=== PATIENT | male | born 1955 | race Caucasian/White ===

== ENCOUNTER 2016-11-05 23:40 | Observation (INO) | payer BC ==
--- NOTE | 2016-11-05 23:56 | EDPHY ---
H & P Stated Complaint: bladder tumor removed on 11/02, abd pain HPI/ROS: Chief complaint: Abdominal pain HPI: Patient is 4 days status post trans urethral bladder tumor removal. Had his Contreras catheter removed yesterday. Had some pain after voiding yet yesterday but it improved today. Today at midnight is started developing some periumbilical pain right greater than left. It is a 4/10. It is dull and constant. Has no nausea vomiting or diarrhea. No fevers or chills. No chest pain or shortness of breath. He has been urinating without any difficulty. Is only having some very minimal discomfort with voiding. States that the car ride here was very uncomfortable. Does have a history of constipation. He has been taking ibuprofen and acetaminophen only for the pain. Was sent home with [place] but did not take any as he is concerned about the possibility of constipation. ROS: 10 point Review of Systems is negative except as noted in the HPI. 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 Spinal schwannoma removed 10 years ago Bilateral inguinal hernia repairs approximately 10 years ago Cholecystectomy in 2014 Medications: He takes a statin and ranitidine and a baby aspirin daily Allergies: No known drug allergies Social history: Does not smoke, does not drink alcohol, does not use any recreational drugs Physical exam: Gen: Awake, Alert, No Distress HEENT: Nose: no rhinorrhea Eyes: PERRLA, EOMI Mouth: Moist mucosa Neck: Supple, no JVD Chest: nontender, lungs clear to auscultation Heart: S1, S2 normal, no murmur Abd: Soft, he has tenderness and guarding with palpation of the right lower and left lower quadrant. Bowel sounds are normal active. No upper abdominal tenderness. Back: no CVA tenderness, no midline tenderness Ext: no edema, non-tender Skin: no rash Neuro: CN II-XII intact, Sensation grossly intact, Strength 5/5 in bilateral upper and lower extremities - Personal History Current Tetanus Diphtheria and Acellular Pertussis (TDAP): Yes - Medical/Surgical History Hx Asthma: No Hx Chronic Respiratory Disease: No Hx Diabetes: No Hx Cardiac Disease: No Hx Renal Disease: No Hx Cirrhosis: No Hx Alcoholism: No Hx HIV/AIDS: No Hx Splenectomy or Spleen Trauma: No Other PMH: GERD, spinal tumor resection, tumor on bladder removed 11/02/16 - Social History Smoking Status: Never smoked Constitutional: Initial Vital Signs Temperature (C) 36.8 C 11/05/16 23:42 Heart Rate 74 11/05/16 23:42 Respiratory Rate 16 11/05/16 23:42 Blood Pressure 170/96 H 11/05/16 23:42 O2 Sat (%) 94 11/05/16 23:42 O2 Delivery Mode Room Air Allergies/Adverse Reactions: No Known Allergies Allergy (Unverified 11/05/16 23:42) Home Medications: Medication Instructions Recorded Ascorbic Acid [Vitamin C 500 mg 1,000 mg PO DAILY 09/23/14 (*)] Aspirin EC [Aspirin EC 81 mg (*)] 81 mg PO DAILY 09/23/14 Calcium Citrate W/Vit D [Citracal 315 mg PO DAILY 09/23/14 + D] Herbals/Supplements -Info Only 1 ea PO DAILY 09/23/14 Multivitamins [Multivitamin (*)] 1 each PO DAILY 09/23/14 [place]-3 Fatty Acids [Fish Oil 1000 3,000 mg PO DAILY 09/23/14 mg (*)] Ranitidine HCl [Zantac] 150 mg PO TID 09/23/14 Simvastatin [Zocor 20 mg] 20 mg PO HS 09/23/14 Hydrocodone/APAP 5/325 [[place] 1 - 2 tab PO Q4 PRN #60 tab 09/24/14 5/325 (*)] Medical Decision Making - Diagnostics Imaging: CT scan of the abdomen and pelvis, interpreted by Dr. Be. There is free air anterior to the bladder with free fluid consistent with urine. There is also a bladder defect in the anterior bladder. This is consistent with bladder perforation. ED Course/Re-evaluation: 61-year-old male status post bladder tumor removal. CT scan reveals the urinary bladder perforation with free air anterior to the bladder and free fluid consistent with urine. I will discuss with Dr. Tam, the patient's urologist. - Data Points Laboratory Results: Laboratory Results 11/06/16 00:30 11/06/16 00:30 11/06/16 11/06/16 11/05/16 00:30 00:30 23:58 WBC 12.53 10^3/uL H 10^3/uL (3.80-9.50) RBC 4.85 10^6/uL 10^6/uL (4.40-6.38) Hgb 14.7 g/dL g/dL (13.7-17.5) Hct 42.1 % % (40.0-51.0) MCV 86.8 fL fL (81.5-99.8) MCH 30.3 pg pg (27.9-34.1) MCHC 34.9 g/dL g/dL (32.4-36.7) RDW 12.7 % % (11.5-15.2) Plt Count 249 10^3/uL 10^3/uL (150-400) MPV 10.5 fL fL (8.7-11.7) Neut % (Auto) 76.8 % H % (39.3-74.2) Lymph % (Auto) 12.7 % L % (15.0-45.0) [place] % (Auto) 8.3 % % (4.5-13.0) Eos % (Auto) 1.4 % % (0.6-7.6) Baso % (Auto) 0.5 % % (0.3-1.7) Nucleat RBC Rel Count 0.0 % % (0.0-0.2) Absolute Neuts (auto) 9.62 10^3/uL H 10^3/uL (1.70-6.50) Absolute Lymphs (auto) 1.59 10^3/uL 10^3/uL (1.00-3.00) Absolute Monos (auto) 1.04 10^3/uL H 10^3/uL (0.30-0.80) Absolute Eos (auto) 0.18 10^3/uL 10^3/uL (0.03-0.40) Absolute Basos (auto) 0.06 10^3/uL 10^3/uL (0.02-0.10) Absolute Nucleated RBC 0.00 10^3/uL 10^3/uL (0-0.01) Immature Gran % 0.3 % % (0.0-1.1) Immature Gran # 0.04 10^3/uL 10^3/uL (0.00-0.10) Sodium 137 mEq/L mEq/L (134-144) Potassium 4.2 mEq/L mEq/L (3.5-5.2) Chloride 103 mEq/L mEq/L (97-110) Carbon Dioxide 23 mEq/l mEq/l (22-31) Anion Gap 11 mEq/L mEq/L (8-16) BUN 14 mg/dL mg/dL (7-23) Creatinine 1.8 mg/dL H mg/dL (0.7-1.3) Estimated GFR 39 Glucose 111 mg/dL H mg/dL (70-100) Calcium 9.1 mg/dL mg/dL (8.5-10.4) Urine Color PALE YELLOW Urine Appearance CLEAR Urine pH 6.0 (5.0-7.5) Ur Specific [place] 1.003 (1.002-1.030) Urine Protein NEGATIVE (NEGATIVE) Urine Ketones NEGATIVE (NEGATIVE) Urine Blood 2+ H (NEGATIVE) Urine Nitrate NEGATIVE (NEGATIVE) Urine Bilirubin NEGATIVE (NEGATIVE) Urine Urobilinogen NEGATIVE EU EU (0.2-1.0) Ur Leukocyte Esterase NEGATIVE (NEGATIVE) Urine RBC 15-25 /hpf H /hpf (0-3) Urine WBC 1-3 /hpf /hpf (0-3) Ur Epithelial Cells NONE SEEN /lpf /lpf (NONE-1+) Urine Glucose NEGATIVE (NEGATIVE) Medications Given: Discontinued Medications Fentanyl (Sublimaze) 50 mcg IVP EDNOW ONE Stop: 11/06/16 00:08 Last Admin: 11/06/16 00:37 Dose: 50 mcg Sodium Chloride (Ns) 1,000 mls @ 0 mls/hr IV ONCE ONE PRN Reason: Wide Open Stop: 11/06/16 00:08 Last Admin: 11/06/16 00:36 Dose: 1,000 mls Sodium Chloride (Ns) 1,000 mls @ 0 mls/hr IV ONCE ONE PRN Reason: Wide Open Stop: 11/06/16 01:41 Last Admin: 11/06/16 01:42 Dose: 1,000 mls Ondansetron HCl (Zofran) 4 mg IVP EDNOW ONE Stop: 11/06/16 00:07 Last Admin: 11/06/16 00:37 Dose: 4 mg Departure - Departure Referrals: Dino Arcos MD [Primary Care Provider] - As per Instructions
[2016-11-06] MEDS ORDERED: ONDANSETRON 4 MG/2 ML VIAL IVP ONE (00:06)
[2016-11-06] MEDS ORDERED: NS 1,000 ML IV ONE ×2 (00:07→01:40)
[2016-11-06] MEDS ORDERED: fentaNYL 100 MCG/2 ML INJ IVP ONE (00:07)
[2016-11-06 00:32] LABS: COLOR PALE YELLOW; LEUKOCYTE ESTERASE,URINE NEGATIVE (NEGATIVE); NITRITE,URINE NEGATIVE (NEGATIVE)
[2016-11-06 00:35] LABS: RBC,URINE 15-25 /hpf (0-3)
[2016-11-06 00:47] LABS: % IMMATURE GRANULYOCYTES 0.3 % (0.0-1.1); ABSOLUTE IMMATURE GRANULOCYTES 0.04 10^3/uL (0.00-0.10); ADD DIFF? NO; ADD MORPH? NO; ADD SCAN? NO; ATYPICAL LYMPHOCYTE FLAG 0 (0-99); FRAGMENT RBC FLAG 0 (0-99); HEMATOCRIT 42.1 % (40.0-51.0); HEMOGLOBIN 14.7 g/dL (13.7-17.5); LEFT SHIFT FLG 0 (0-99); LIPEMIA HEMOLYSIS FLAG 90 (0-99); MEAN CELL HEMOGLOBIN 30.3 pg (27.9-34.1); MEAN CELL HEMOGLOBIN CONCENTR. 34.9 g/dL (32.4-36.7); MEAN CELL VOLUME 86.8 fL (81.5-99.8); MEAN PLATELET VOLUME 10.5 fL (8.7-11.7); PLATELET CLUMPS FLAG 50 (0-99); PLATELET COUNT 249 10^3/uL (150-400); RED BLOOD CELL COUNT 4.85 10^6/uL (4.40-6.38); RED CELL DISTRIBUTION WIDTH 12.7 % (11.5-15.2)
[2016-11-06 01:09] LABS: ANION GAP 11 mEq/L (8-16); CALCIUM 9.1 mg/dL (8.5-10.4); CARBON DIOXIDE 23 mEq/l (22-31); CHLORIDE 103 mEq/L (97-110); CREATININE 1.8 mg/dL (0.7-1.3); GLOMERULAR FILTRATION RATE 39; GLUCOSE 111 mg/dL (70-100); POTASSIUM 4.2 mEq/L (3.5-5.2); SODIUM 137 mEq/L (134-144)
[2016-11-06] MEDS ORDERED: IOPAMIDOL (ISOVUE-300) 100 ML BTL IV ONE (01:15)
[2016-11-06] MEDS ORDERED: HYDROmorphONE/DILAUDID 1 MG/ML SYR ONE (01:58)
[2016-11-06] MEDS ORDERED: HYDROmorphONE/DILAUDID 1 MG/ML SYR IVP ONE (02:01)
--- NOTE | 2016-11-06 02:39 | PDCONSULT ---
Brand Sales Manager Note: Case discussed with Dr Gabriel. CT images and labs reviewed. Plan for observation. Contreras catheter. CT cystogram in AM. May need exploration if doesn't clinically improve but will try conservative management first.
[2016-11-06] MEDS: HYDROmorphONE/DILAUDID 1 MG/ML SYR IVP PRN ×7 (04:14→22:05)
[2016-11-06] MEDS ORDERED: IOPAMIDOL (ISOVUE-300) 50 ML VIAL IV ONE (07:37)
[2016-11-06] MEDS ORDERED: OPIUM/BELLADONNA ALKALO SUPP PR PRN ×2 (14:25→14:26)
[2016-11-06] MEDS: FAMOTIDINE 20 MG TAB PO SCH ×2 (15:56→22:04)
--- NOTE | 2016-11-06 16:23 | SOAPPROG ---
SOAP Progress Note Assessment/Plan: Assessment: Extraperitoneal rupture of bladder Acute Reviewed CAT scan and exam. Continue care, answered questions Plan: Continue kilgore, plan DC in AM, consider cystogram one week from Wednesday prior to removal of kilgore 11/06/16 16:25 Subjective: feeling better, removed kilgore Wednesday and had pain / spasms post removal. Objective: Vital Signs Temp Pulse Resp BP Pulse Ox 36.9 C 57 L 16 116/73 94 11/06/16 15:47 11/06/16 15:47 11/06/16 15:47 11/06/16 15:47 11/06/16 15:47 11/05/16 11/06/16 11/07/16 05:59 05:59 05:59 Intake Total 2000 Output Total 1300 2100 Balance 700 -2100 Physical Exam - Physical Exam General Appearance: alert Neck: supple, normal inspection Respiratory: No respiratory distress Cardiac/Chest: regular rate, rhythm Abdomen: soft, No guarding (no abdominal wall erythema), No rebound Back: No CVA tenderness Extremities: non-tender, No calf tenderness, No Shereen's sign Neuro/Psych: alert, oriented x 3 ICD10 Worksheet Patient Problems: Problems Problem Status Onset Extraperitoneal rupture of bladder Acute Acute cholecystitis Acute
--- NOTE | 2016-11-06 17:16 | GHP ---
[f rep st] PREOP HISTORY AND PHYSICAL DATE OF ADMISSION: 11/06/2016 ADMISSION DIAGNOSIS: Bladder rupture. HISTORY OF PRESENT ILLNESS: By history this gentleman is 4 days status post transurethral resection of a bladder lesion and he removed the catheter on Wednesday and is admitted to the hospital [facility] of abdominal pain. He had some paraumbilical pain, greater on the right than the left and it was dull and constant. He had no nausea, vomiting, diarrhea, fever or chills. No shortness of breath. He has been urinating with some difficulty. He is only having some very minimal discomfort with vo iding. REVIEW OF SYSTEMS: Negative cardiac, respiratory, GI, endocrine and neuro. PAST SURGERY HISTORY: He has had TUR of a bladder lesion and he has had GERD and hyperlipidemia. Kirsten cha has had a T12-L1 spinal schwannoma removed 10 years ago. Bilateral inguinal hernia repair 10 year s ago. Cholecystectomy in 2014. MEDICATIONS: Have been a statin, ranitidine. ALLERGIES: No known drug allergies. SOCIAL HISTORY: Nonsmoker and nondrinker. PHYSICAL EXAM: GENERAL: He is alert and oriented x3. HEART: Regular rate and rhythm. ABDOMEN: No rebound or guarding. EXTREMITIES: Lower extremities are normal. GENITALIA: Penis is normal wi th the catheter draining well. BACK: He has no CVA tenderness. ABDOMEN: No abdominal wall erythe ma. I have reviewed his CAT scan and it shows he has had perforation of the dome of the bladder ervin t to me appears to be extraperitoneal and at the present time I have discussed with him the above is sues and the plan. My suggestion would be to leave the catheter in until a week from Wednesday where kirsten cha would then have a cystogram and if the cystogram shows no leakage of urine then to remove the cath eter. I have also discussed another option would be to operate on him and close the perforation but at the present time with him feeling better, things going well, I have elected to take a more conse rvative route. Dr. Levine was the consulting physician being on-call at night and I have seen the patient for the admission and followup. /[id number]/MODL
[2016-11-07] MEDS: HYDROmorphONE/DILAUDID 1 MG/ML SYR IVP PRN (00:27)
[2016-11-07 05:16] VITALS: TEMP 98.1; O2SAT 96
[2016-11-07 05:36] LABS: ANION GAP 7 mEq/L (8-16); CALCIUM 8.6 mg/dL (8.5-10.4); CARBON DIOXIDE 28 mEq/l (22-31); CHLORIDE 104 mEq/L (97-110); GLOMERULAR FILTRATION RATE > 60; GLUCOSE 115 mg/dL (70-100); POTASSIUM 4.2 mEq/L (3.5-5.2); SODIUM 139 mEq/L (134-144)
[2016-11-07 07:58] VITALS: BP 140/83; PULSE 55; RESP 16
[2016-11-07] MEDS ORDERED: CETIRIZINE 10 MG TAB PO PRN (09:00)
[2016-11-07] MEDS ORDERED: ATORVASTATIN CALCIUM 20 MG TAB PO SCH (09:00)
--- NOTE | 2016-11-07 10:34 | SOAPPROG ---
SOAP Progress Note Assessment/Plan: Assessment: Extraperitoneal rupture of bladder Acute Reviewed CAT scan and exam. Continue care, answered questions Plan: Continue kilgore, plan DC , consider cystogram one week from Wednesday prior to removal of kilgore 11/07/16 10:33 Subjective: doing well desires DC, options discussed on rx / care of the admitting problem Objective: Vital Signs Temp Pulse Resp BP Pulse Ox 36.7 C 55 L 16 140/83 H 96 11/07/16 07:57 11/07/16 07:57 11/07/16 07:57 11/07/16 07:57 11/07/16 07:57 Laboratory Results 11/07/16 04:36 11/06/16 11/07/16 11/08/16 05:59 05:59 05:59 Intake Total 2000 800 Output Total 1300 4750 Balance 700 -3950 Physical Exam - Physical Exam General Appearance: alert Neck: normal inspection Respiratory: No respiratory distress Cardiac/Chest: regular rate, rhythm Abdomen: soft, No distended, No guarding, No rebound Male Genitalia: normal genitalia Back: No CVA tenderness Skin: warm/dry Extremities: No calf tenderness, No Shereen's sign Neuro/Psych: alert, oriented x 3 ICD10 Worksheet Patient Problems: Problems Problem Status Onset Extraperitoneal rupture of bladder Acute Acute cholecystitis Acute
[2016-11-07] MEDS: FAMOTIDINE 20 MG TAB PO SCH (10:39)
--- NOTE | 2016-11-07 11:08 | GDS ---
[f rep st] DISCHARGE SUMMARY ADMISSION DIAGNOSIS: Perforation of the bladder. DISCHARGE DIAGNOSIS: Perforation of the bladder. PROCEDURES DURING HOSPITALIZATION: Contreras catheter placement and CT cystogram/CT of the abdomen and pelvis. HOSPITAL COURSE: This gentleman was admitted urgently and was noted to have a perforation of the do me of the bladder and all symptoms abated when a catheter was passed. Impression is most likely an e xtraperitoneal extravasation or hole and elected not to have intervention with surgery. Will have c atheter drainage. Then in 1 week have him undergo a cystogram for consideration catheter. He is aw are of the options of catheter drainage or see if it will resolve spontaneously or if it will requir e surgical closure of the perforation. He is quite comfortable with the plan of catheter, spontaneo us healing. He will call the office for scheduling the appointment cystogram and followup with Dr. Tam. No complications encountered, associated with the direct admission, and his creatinine on d ischarge is normal and good urine output. No major complaints. /[id number]/MODL
== END 2016-11-07 11:10 | disposition home or self-care (01) ==
LOC: F3N 11-06 03:30
PROVIDERS: ADMIT Urology; ATTEND Specialist
PROC: 0T9B70Z Drainage of Bladder with Drainage Device, Via Natural or Artificial Opening (ICD-10-PCS; principal; 2016-11-06)
DX: N99.89 Other postprocedural complications and disorders of genitourinary system (principal); N32.89 Other specified disorders of bladder; K21.9 Gastro-esophageal reflux disease without esophagitis; E78.5 Hyperlipidemia, unspecified
CPT/HCPCS: 51702; 72193; 74177; G0378; J0696; J1170; J2405; J3010; Q9967

== ENCOUNTER → 2016-11-16 | Outpatient (CLI) | payer BC | LOC: FIMAGING 07:43 | PROVIDERS: ATTEND Specialist | DX: Z09 Encounter for follow-up examination after completed treatment for conditions other than malignant neoplasm (principal) ==

== ENCOUNTER 2018-01-04 16:58 | Observation (INO) | payer BC ==
[2018-01-04] MEDS ORDERED: ACETAMINOPHEN 500 MG TAB PO ONE (17:07)
[2018-01-04] MEDS ORDERED: NS 1,000 ML IV ONE ×2 (17:51)
[2018-01-04 18:50] LABS: PLATELET COUNT 198 10^3/uL (150-400)
--- NOTE | 2018-01-04 18:50 | EDPHY ---
H & P Time Seen by Provider: 01/04/18 17:49 HPI/ROS: Chief complaint. Cough, fever HPI. 62-year-old male presents emergency department with upper respiratory symptoms for the past 8-9 days. It has progressively worsened. He has had dyspnea on exertion especially the last 2 days. He has been using over-the- counter meds. Yesterday and today the patient has had fever, chills, shivering as well as productive cough. No recent travel or known exposures. No abdominal pain or nausea vomiting or diarrhea. No chest discomfort. ROS Constitutional. Fever and chills as well as generalized weakness Eyes. no problems with vision ENT. Upper respiratory infection and slight sore throat Cardiovascular. no chest pain Respiratory. Cough and shortness of breath especially with exertion Abdominal. no abdominal pain, no nausea/vomiting, no diarrhea . no problems urinating MS. no calf pain/swelling, no neck/back pain, no joint pain Skin. no rash Lymph. no swollen glands Neuro. no headache, no dizziness, no difficulty walking or with speech Past Medical/Surgical History: GERD, spinal tumor resection, cholecystectomy, hernia repair Social History: , nonsmoker, no alcohol Smoking Status: Never smoked Physical Exam: General Appearance: Alert well-developed male moderate distress vital signs show temp 39.3 degrees, heart rate 125, O2 saturation 91% on room air Eyes: Pupils equal and round no pallor or injection. ENT, Mouth: Mucous membranes are moist. Respiratory: Rales mid lung acuña bilaterally and decreased breath sounds on the left lung base Cardiovascular: Regular rate and rhythm with tachycardia Gastrointestinal: Abdomen is soft and nontender, no masses, bowel sounds normal. Neurological: Awake and alert, sensory and motor exams grossly normal. Skin: Warm and dry, no rashes. Musculoskeletal: Neck is supple nontender. Extremities symmetrical, full range of motion. Psychiatric: Patient is oriented X 3, there is no agitation. Constitutional: Initial Vital Signs Temperature (C) 39.3 C H 01/04/18 17:04 Heart Rate 125 H 01/04/18 17:04 Respiratory Rate 18 01/04/18 17:04 Blood Pressure 163/91 H 18 17:04 O2 Sat (%) 91 L 01/04/18 17:04 O2 Delivery Mode Room Air Allergies/Adverse Reactions: No Known Allergies Allergy (Unverified 01/04/18 17:04) Home Medications: Medication Instructions Recorded Ascorbic Acid [Vitamin C 500 mg 1,000 mg PO DAILY 09/23/14 (*)] Aspirin EC [Aspirin EC 81 mg (*)] 81 mg PO DAILY 09/23/14 Calcium Citrate W/Vit D [Citracal 315 mg PO DAILY 09/23/14 + D] Herbals/Supplements -Info Only 1 ea PO DAILY 09/23/14 Multivitamins [Multivitamin (*)] 1 each PO DAILY 09/23/14 [place]-3 Fatty Acids [Fish Oil 1000 3,000 mg PO DAILY 09/23/14 mg (*)] Ranitidine HCl [Zantac] 150 mg PO TID 09/23/14 Fexofenadine HCl [Norma Allergy] 60 mg PO DAILY PRN 11/06/16 Simvastatin [Zocor] 40 mg PO DAILY 11/06/16 Medical Decision Making - Diagnostics Imaging Results: Imaging Impressions Chest X-Ray 01/04/18 17:09 Impression: Findings consistent with airways disease are noted with no superimposed pneumonia identified. Procedures: IV normal saline. Septic workup IV Rocephin and Zithromax in the emergency department ED Course/Re-evaluation: Serial evaluations patient remained stable . Patient is given a DuoNeb updraft. The patient, his , and I discussed imaging and lab results. We discussed treatment plan including recommendation for admission. They expressed Understanding and agreement I consulted and discussed the case with , hospitalist, who agrees to the admission Differential Diagnosis: I considered pneumonia, bronchitis. I have considered sepsis. Patient's lactate is normal. I think the patient has fairly significant dehydration and as we rehydrate him we will see pneumonia on subsequent chest x-ray - Data Points Laboratory Results: Laboratory Results 01/04/18 18:29 01/04/18 18:29 01/04/18 01/04/18 01/04/18 18:56 18:45 18:29 WBC RBC Hgb Hct MCV MCH MCHC RDW Plt Count MPV Neut % (Auto) Lymph % (Auto) [place] % (Auto) Eos % (Auto) Baso % (Auto) Nucleat RBC Rel Count Absolute Neuts (auto) Absolute Lymphs (auto) Absolute Monos (auto) Absolute Eos (auto) Absolute Basos (auto) Absolute Nucleated RBC Immature Gran % Immature Gran # PT INR APTT VBG Lactic Acid 1.7 mmol/L mmol/L (0.7-2.1) Sodium 137 mEq/L mEq/L (135-145) Potassium 4.0 mEq/L mEq/L (3.5-5.2) Chloride 101 mEq/L mEq/L (97-110) Carbon Dioxide 23 mEq/l mEq/l (22-31) Anion Gap 13 mEq/L mEq/L (8-16) BUN 13 mg/dL mg/dL (7-23) Creatinine 0.9 mg/dL mg/dL (0.7-1.3) Estimated GFR > 60 Glucose 106 mg/dL H mg/dL (70-100) Calcium 9.1 mg/dL mg/dL (8.5-10.4) Total Bilirubin 0.6 mg/dL mg/dL (0.1-1.4) Nasal Influenza A PCR Pending Nasal Influenza B PCR Pending 01/04/18 01/04/18 18:29 18:29 WBC 11.17 10^3/uL H 10^3/uL (3.80-9.50) RBC 5.14 10^6/uL 10^6/uL (4.40-6.38) Hgb 14.9 g/dL g/dL (13.7-17.5) Hct 44.0 % % (40.0-51.0) MCV 85.6 fL fL (81.5-99.8) MCH 29.0 pg pg (27.9-34.1) MCHC 33.9 g/dL g/dL (32.4-36.7) RDW 13.9 % % (11.5-15.2) Plt Count 198 10^3/uL 10^3/uL (150-400) MPV 9.7 fL fL (8.7-11.7) Neut % (Auto) 90.9 % H % (39.3-74.2) Lymph % (Auto) 4.1 % L % (15.0-45.0) [place] % (Auto) 4.7 % % (4.5-13.0) Eos % (Auto) 0.0 % L % (0.6-7.6) Baso % (Auto) 0.1 % L % (0.3-1.7) Nucleat RBC Rel Count 0.0 % % (0.0-0.2) Absolute Neuts (auto) 10.15 10^3/uL H 10^3/uL (1.70-6.50) Absolute Lymphs (auto) 0.46 10^3/uL L 10^3/uL (1.00-3.00) Absolute Monos (auto) 0.53 10^3/uL 10^3/uL (0.30-0.80) Absolute Eos (auto) 0.00 10^3/uL L 10^3/uL (0.03-0.40) Absolute Basos (auto) 0.01 10^3/uL L 10^3/uL (0.02-0.10) Absolute Nucleated RBC 0.00 10^3/uL 10^3/uL (0-0.01) Immature Gran % 0.2 % % (0.0-1.1) Immature Gran # 0.02 10^3/uL 10^3/uL (0.00-0.10) PT Pending INR Pending APTT Pending VBG Lactic Acid Sodium Potassium Chloride Carbon Dioxide Anion Gap BUN Creatinine Estimated GFR Glucose Calcium Total Bilirubin Nasal Influenza A PCR Nasal Influenza B PCR Medications Given: Discontinued Medications Acetaminophen (Tylenol) 1,000 mg PO EDNOW ONE Stop: 01/04/18 17:08 Last Admin: 01/04/18 17:10 Dose: 1,000 mg Albuterol/Ipratropium (Duoneb) 3 ml IH EDNOW ONE Stop: 01/04/18 18:52 Last Admin: 01/04/18 19:01 Dose: 3 ml Sodium Chloride (Ns) 1,000 mls @ 0 mls/hr IV EDNOW ONE; Wide Open PRN Reason: Protocol Stop: 01/04/18 17:52 Last Admin: 01/04/18 18:49 Dose: 1,000 mls Sodium Chloride (Ns) 1,000 mls @ 0 mls/hr IV EDNOW ONE; Wide Open PRN Reason: Protocol Stop: 01/04/18 17:52 Last Admin: 01/04/18 18:50 Dose: 1,000 mls Departure - Departure Disposition: [facility] Inpatient Acute Clinical Impression: Pneumonia Qualifiers: Pneumonia type: due to unspecified organism Laterality: left Lung location: lower lobe of lung Qualified Code(s): J18.1 - Lobar pneumonia, unspecified organism Condition: Fair Referrals: Dino Arcos MD [Primary Care Provider] - As per Instructions
[2018-01-04] MEDS ORDERED: IPRATROPIUM/ALBUTEROL 3 ML DEYVIAL IH ONE (18:51)
[2018-01-04] MEDS ORDERED: IPRATROPIUM/ALBUTEROL 3 ML DEYVIAL ONE (19:00)
[2018-01-04] MEDS ORDERED: AZITHROMYCIN IV 500 MG in NS 250 ML IV ONE (19:06)
[2018-01-04 19:09] LABS: INR 0.97 (0.83-1.16); PROTIME(PATIENT) 13.1 SEC (12.0-15.0)
[2018-01-04] MEDS ORDERED: ONDANSETRON 4 MG/2 ML VIAL IVP PRN (21:51)
[2018-01-04] MEDS ORDERED: traMADol 50 MG TAB PO PRN (21:51)
[2018-01-04] MEDS ORDERED: IBUPROFEN 600 MG TAB PO PRN (21:51)
[2018-01-04] MEDS ORDERED: ACETAMINOPHEN 325 MG TAB PO PRN (21:51)
[2018-01-04] MEDS ORDERED: oxyCODONE IR 5 MG TAB PO PRN (21:51)
[2018-01-04] MEDS: OSELTAMIVIR PHOSPHATE 75 MG CAP PO SCH (22:06)
--- NOTE | 2018-01-04 22:38 | GHP ---
[f rep st] HISTORY AND PHYSICAL DATE OF ADMISSION: 01/04/2018 CHIEF COMPLAINT: Fever. HISTORY: The patient is a 62-year-old male, who has had an upper respiratory tract infection for 9 d ays. It was really mostly just a persistent cough. He thought he was getting better and on Wednesday i ncreased his activity back to normal. Today, he dramatically worsened and developed a high fever, up to 39.3. This is the 1st day he has had fever. He never had any myalgias. He is very short of kaitlin ath. He continues with a nonproductive cough. Although now today it is starting to produce a little mucus. PAST MEDICAL HISTORY: 1. Bladder tumor status post transurethral resection. 2. GERD. 3. Hyperlipidemia. 4. Spinal schwannoma status post removal. PAST SURGICAL HISTORY: Hernia and cholecystectomy. MEDICATIONS: Please see computer record for full detailed list. ALLERGIES: No known drug allergies. SOCIAL HISTORY: No smoking. No alcohol. Lives with his . He works in management. REVIEW OF SYSTEMS: Complete review of systems obtained. Review of systems negative on constitutiona l, HEENT, GI, pulmonary, cardiovascular, , hematology, skin, musculoskeletal, endocrine, psych, exc ept for positives and negatives as noted in HPI. FAMILY HISTORY: Reviewed, noncontributory to presenting complaint. PHYSICAL EXAMINATION: GENERAL: Well-developed, well-nourished male, in no acute distress. VITAL SI GNS: Temperature is 39.3, pulse 125, blood pressure 123/73, saturating 95% on room air. EYES: Norm al conjunctiva. Pupils round, reactive to light. ENT: Normal ears, nose. Hearing intact. Normal lips and teeth. Oropharynx moist. NECK: Trachea midline. No thyromegaly. CHEST: Normal effort. LUNGS: Clear to auscultation bilaterally. CARDIOVASCULAR: Regular rhythm. No murmur. No lower e xtremity edema. ABDOMEN: Soft, nontender. No hepatosplenomegaly. SKIN: Warm, dry, intact. No ra sh. MUSCULOSKELETAL: No cyanosis or clubbing. Strength 5/5 upper and lower extremities. NEURO: C ranial nerves intact. Normal sensation to light touch. PSYCHIATRIC: Alert and oriented x3. Normal mood and affect. Normal judgment and insight. Normal memory. LABORATORY DATA: White count 11.17, hematocrit 44.0, platelets 198. Sodium 137, potassium 4.0, chlo ride 101, bicarb 23, BUN 13, creatinine 0.9, glucose 106. Influenza B is positive. Chest x-ray is n egative. This case was discussed with Dr. Pena. He treated for pneumonia. This was prior to the influenza coming back positive. ASSESSMENT/PLAN: 1. Influenza B. It is unclear if he has gotten a second viral infection in the last 24 hours, or if the influenza is more long-standing and now he has a secondary bacterial infection. I will initiate Tamiflu and do a 5 day course. 2. Suspected secondary bacterial infection. The time line is unusual that he had an upper respirato ry infection that improved and then has now worsened again, now dramatically so with high fever and t achycardia. As discussed above, this is suspicious for possible bacterial super-infection. We will therefore continue antibiotics in the form of azithromycin. 3. Systemic inflammatory response syndrome. I suspect this is due to his viral infection and I doub t bacterial sepsis. Blood cultures are pending. 4. Gastroesophageal reflux disease. Continue Zantac. CODE STATUS: Full. ADMISSION STATUS: We will admit to observation. Reevaluate tomorrow for ongoing hospitalization. DEEP VENOUS THROMBOSIS PROPHYLAXIS: He is low risk. We will ambulate. /[id number]/MODL
[2018-01-05] MEDS: IPRATROPIUM/ALBUTEROL 3 ML DEYVIAL IH SCH ×2 (02:30→05:35)
[2018-01-05] MEDS ORDERED: CALCIUM CARBONATE 500 MG CHEWABLE TAB PO PRN (06:26)
[2018-01-05 07:50] VITALS: BP 106/68
[2018-01-05] MEDS: OSELTAMIVIR PHOSPHATE 75 MG CAP PO SCH (08:09)
[2018-01-05] MEDS ORDERED: AZITHROMYCIN 250 MG TAB PO SCH (09:00)
[2018-01-05] MEDS ORDERED: FAMOTIDINE 20 MG TAB PO SCH (09:00)
[2018-01-05] MEDS ORDERED: ASPIRIN EC 81 MG TAB PO SCH (09:00)
--- NOTE | 2018-01-05 14:41 | GDS ---
[f rep st] DISCHARGE SUMMARY DISCHARGE DIAGNOSES: 1. Influenza B. 2. Systemic inflammatory response syndrome. PHYSICAL EXAMINATION: VITAL SIGNS: Afebrile at 37, pulse 66, respiratory rate 16. Blood pressure i s 106/68. He is saturating 90% on room air. I have seen and evaluated the patient on the day of discharge. HOSPITAL COURSE: The patient is a 62-year-old male who presented to the emergency room with complain ts of shortness of breath and fever. He was evaluated and diagnosed with: 1. Influenza B. during this hospitalization, he was transitioned to Tamiflu. His symptoms have sig nificantly improved. It is also suspected the patient had an underlying bacterial infection, as he h as been sick for several weeks. He was initiated on azithromycin and this will be continued in the o utpatient setting after the time of disposition. 2. Systemic inflammatory response syndrome. This has resolved with appropriate treatment. Blood cu ltures continue to be pending at the time of disposition. The patient will follow up with his primar care physician. DISPOSITION: He will be discharged home independently. DISCHARGE MEDICATIONS: He has been provided a prescription for azithromycin, as well as Tamiflu. There are no other pending studies. His primary care physician is Dr. Dino Arcos. /[id number]/MODL
[2018-01-05] MEDS ORDERED: ATORVASTATIN CALCIUM 20 MG TAB PO SCH (21:00)
== END 2018-01-05 11:00 | disposition home or self-care (01) ==
LOC: INTOOBSV 19:07 → F3E 19:52
PROVIDERS: ADMIT Internal Medicine; ATTEND Internal Medicine
DX: J10.1 Influenza due to other identified influenza virus with other respiratory manifestations (principal); R65.10 Systemic inflammatory response syndrome (SIRS) of non-infectious origin without acute organ dysfunction; E86.9 Volume depletion, unspecified; K21.9 Gastro-esophageal reflux disease without esophagitis; E78.5 Hyperlipidemia, unspecified; Z86.018 Personal history of other benign neoplasm
CPT/HCPCS: 71046; 96360; 99285; G0378; J0456; J0696